=== PATIENT | male | born 1945 | race Caucasian/White ===

== ENCOUNTER → 2017-01-29 11:13 | Outpatient (CLI) | payer MEDICARE, OTHER ==
[2015-03-27 06:53] VITALS: BMI 30.1
[~2017-01-29 11:13] MED LIST: BENAZEPRIL HCL10 MG PO; CALAN SR240 MG PO; CENTRUM COMPLE1 EACH PO; KEFLEX500 MG PO
== END | disposition home or self-care (01) ==
LOC: D.CT 11:13
DX: J32.9 Chronic sinusitis, unspecified (principal)